=== PATIENT | female | born 1960 | race Caucasian/White ===

== ENCOUNTER 2016-11-23 00:09 | Inpatient (IN) | payer OTHER ==
[2016-11-23] VITALS (13 sets, daily range): BP systolic 103–169; BP diastolic 53–86; PULSE 76–121; RESP 16–20; TEMP 98–98.1; O2SAT 98–100
[~2016-11-23] VITALS: Ht 170.2 cm; Wt 105.0 kg
[2016-11-23] MEDS ORDERED: BYST5TAB2 PO (00:17)
[2016-11-23] MEDS ORDERED: SODIUM CHLOR 0.9% 1000 ML INJ 1,000 ML IV ONE (01:00)
[2016-11-23] MEDS ORDERED: cloNIDine HCL 0.2 MG TAB PO ONE (01:00)
[2016-11-23] MEDS ORDERED: OXYMETAZOLINE HCL 0.05% 15 ML NASAL SPRAY NASAL ONE (01:00)
[2016-11-23 01:22] LABS: AUTOMATED NEUTROPHIL # 2.8 TH/MM3 (1.8-7.7); BASOPHIL % 0.6 % (0.0-2.0); EOSINOPHIL # 0.2 TH/MM3 (0-0.4); EOSINOPHIL % 3.6 % (0.0-4.0); HEMATOCRIT 36.1 % (35.0-46.0); LYMPH % 33.9 % (9.0-44.0); LYMPHOCYTE # 1.7 TH/MM3 (1.0-4.8); MEAN CORPUSCULAR HEMOGLOBIN 28.4 PG (27.0-34.0); MONO % 6.7 % (0.0-8.0); NEUT % 55.2 % (16.0-70.0); PLATELET COUNT 195 TH/MM3 (150-450); RED CELL DISTRIBUTION WIDTH 13.4 % (11.6-17.2); WHITE BLOOD COUNT 5.1 TH/MM3 (4.0-11.0)
[2016-11-23 01:29] LABS: HEMO FLAGS AUTO DIFF
[2016-11-23] MEDS ORDERED: ONDANSETRON HCL 4 MG/2 ML VIAL IV PUSH ONE (01:30)
[2016-11-23 01:38] LABS: APTT (PATIENT) 21.2 SEC (24.3-30.1); PROTHROMBIN TIME - PATIENT 11.1 SEC (9.8-11.6)
[2016-11-23 01:46] LABS: ALKALINE PHOSPHATASE 104 U/L (45-117); TOTAL BILIRUBIN ADULT 0.6 MG/DL (0.2-1.0)
[2016-11-23 01:47] LABS: ALT (GPT) 25 U/L (10-53); ANION GAP 6 MEQ/L (5-15); AST (GOT) 26 U/L (15-37); BICARBONATE 27.2 MEQ/L (21.0-32.0); BLOOD UREA NITROGEN 14 MG/DL (7-18); CHLORIDE 108 MEQ/L (98-107); GLOMERULAR FILTRATION RATE 70 ML/MIN (>89); SODIUM (NA) 141 MEQ/L (136-145)
[2016-11-23 01:48] LABS: POTASSIUM 4.1 MEQ/L (3.5-5.1)
--- NOTE | 2016-11-23 01:53 | PD ---
HPI Chief Complaint: Nosebleed Time Seen by Provider: 01:47 Travel History International Travel<30 days: No Contact w/Intl Traveler<30days: No Traveled to known affect area: No History of Present Illness HPI 56-year-old black female presents to emergency department by EMS with complaints of epistaxis. She states that she had awoken from sleep with blood coming from her nose. She states that she was unable to stop the bleeding at home and presents to the ER. She came in by ambulance. She denies any trauma. No recent illness. She denies any blood dyscrasias. No connective tissue disorders. She does have hypertension but takes her medication daily. Patient denies any dizziness or syncope. No chest pains or palpitations. PFS Past Medical History Narrative Medical Hypertension Diabetes: Yes (NO MEDS) Patient Takes Glucophage: No Diminished Hearing: No Hypertension: Yes Tetanus Vaccination: < 5 Years ?: Not Past Surgical History Narrative Surgical Gastric bypass Abdominal Surgery: Yes (GASTRIC BYPASS 2014) Social History Alcohol Use: No Tobacco Use: No Substance Use: No Allergies-Medications (Allergen,Severity, Reaction): Coded Allergies: No Known Allergies (Unverified , 11/23/16) Reported Meds & Prescriptions Reported Meds & Active Scripts Active Reported Bystolic (Nebivolol) 5 Mg Tab 5 Mg PO DAILY Physical Exam Narrative GENERAL: Well-developed, well-nourished in no apparent distress. Nontoxic appearing. HEAD: Normocephalic, atraumatic. EYES: Pupils equal round and reactive. Extraocular motions intact. No scleral icterus. No injection or drainage. ENT: Nose copious amounts of bright red active bleeding from the left nostril with some trickling from the right. Positive blood in the posterior pharynx area. Throat without erythema, tonsillar hypertrophy or exudate. Uvula midline. Airway patent. NECK: Trachea midline. Supple, nontender, moves head freely. No central bony tenderness or spasm. CARDIOVASCULAR: Regular rate and rhythm without murmurs, gallops, or rubs. RESPIRATORY: Clear to auscultation. Breath sounds equal bilaterally. No wheezes , rales, or rhonchi. GASTROINTESTINAL: Abdomen soft, non-tender, nondistended. No hepato-splenomegaly , or palpable masses. No guarding. EXTREMITIES: No clubbing, cyanosis, or edema. No joint tenderness. BACK: Nontender without deformity. No flank tenderness. NEUROLOGICAL: Awake, alert and oriented x 3 .Cranial nerves grossly intact. Motor and sensory grossly within normal limits. Normal speech. Data Data Last Documented VS Vital Signs Date Time Temp Pulse Resp B/P Pulse Ox O2 Delivery O2 Flow Rate FiO2 11/23/16 03:01 169/82 11/23/16 02:31 96 20 100 Room Air 11/23/16 00:20 98.1 Orders Complete Blood Count With Diff (11/23/16 00:55) Comprehensive Metabolic Panel (11/23/16 00:55) Prothrombin Time / Inr (Pt) (11/23/16 00:55) Act Partial Throm Time (Ptt) (11/23/16 00:55) Iv Access Insert/Monitor (11/23/16 00:55) Ecg Monitoring (11/23/16 00:55) Type And Screen (11/23/16 00:55) Clonidine (Catapres) (11/23/16 01:00) Oxymetazoline 0.05% Panda [place] (Afrin 0.0 (11/23/16 01:00) Sodium Chlor 0.9% 1000 Ml Inj (Ns 1000 M (11/23/16 01:00) Ondansetron Inj (Zofran Inj) (11/23/16 01:30) Lorazepam Inj (Ativan Inj) (11/23/16 02:45) Hydralazine Inj (Apresoline Inj) (11/23/16 02:45) Hydralazine Inj (Apresoline Inj) (11/23/16 03:15) Hemoglobin (Hgb) (11/23/16 03:37) Hematocrit (Hct) (11/23/16 03:37) Morphine Inj (Morphine Inj) (11/23/16 03:45) Hydralazine Inj (Apresoline Inj) (11/23/16 03:45) Labs Laboratory Tests Test 11/23/16 01:10 White Blood Count 5.1 TH/MM3 Red Blood Count 4.20 MIL/MM3 Hemoglobin 11.9 GM/DL Hematocrit 36.1 % Mean Corpuscular Volume 86.0 FL Mean Corpuscular Hemoglobin 28.4 PG Mean Corpuscular Hemoglobin 33.0 % Concent Red Cell Distribution Width 13.4 % Platelet Count 195 TH/MM3 Mean Platelet Volume 9.6 FL Neutrophils (%) (Auto) 55.2 % Lymphocytes (%) (Auto) 33.9 % Monocytes (%) (Auto) 6.7 % Eosinophils (%) (Auto) 3.6 % Basophils (%) (Auto) 0.6 % Neutrophils # (Auto) 2.8 TH/MM3 Lymphocytes # (Auto) 1.7 TH/MM3 Monocytes # (Auto) 0.3 TH/MM3 Eosinophils # (Auto) 0.2 TH/MM3 Basophils # (Auto) 0.0 TH/MM3 CBC Comment AUTO DIFF Differential Comment AUTO DIFF CONFIRMED Platelet Estimate NORMAL Platelet Morphology Comment NORMAL Prothrombin Time 11.1 SEC Prothromb Time International 1.0 RATIO Ratio Activated Partial 21.2 SEC Thromboplast Time Sodium Level 141 MEQ/L Potassium Level 4.1 MEQ/L Chloride Level 108 MEQ/L Carbon Dioxide Level 27.2 MEQ/L Anion Gap 6 MEQ/L Blood Urea Nitrogen 14 MG/DL Creatinine 0.84 MG/DL Estimat Glomerular Filtration 70 ML/MIN Rate Random Glucose 157 MG/DL Calcium Level 8.5 MG/DL Total Bilirubin 0.6 MG/DL Aspartate Amino Transf 26 U/L (AST/SGOT) Alanine Aminotransferase 25 U/L (ALT/SGPT) Alkaline Phosphatase 104 U/L Total Protein 7.1 GM/DL Albumin 3.3 GM/DL Blood Type O POSITIVE Antibody Screen NEGATIVE Blood Bank Comment [facility] Medical Decision Making Medical Screen Exam Complete: Yes Emergency Medical Condition: Yes Medical Record Reviewed: Yes Interpretation(s) Laboratory Tests Test 11/23/16 01:10 White Blood Count 5.1 TH/MM3 Red Blood Count 4.20 MIL/MM3 Hemoglobin 11.9 GM/DL Hematocrit 36.1 % Mean Corpuscular Volume 86.0 FL Mean Corpuscular Hemoglobin 28.4 PG Mean Corpuscular Hemoglobin 33.0 % Concent Red Cell Distribution Width 13.4 % Platelet Count 195 TH/MM3 Mean Platelet Volume 9.6 FL Neutrophils (%) (Auto) 55.2 % Lymphocytes (%) (Auto) 33.9 % Monocytes (%) (Auto) 6.7 % Eosinophils (%) (Auto) 3.6 % Basophils (%) (Auto) 0.6 % Neutrophils # (Auto) 2.8 TH/MM3 Lymphocytes # (Auto) 1.7 TH/MM3 Monocytes # (Auto) 0.3 TH/MM3 Eosinophils # (Auto) 0.2 TH/MM3 Basophils # (Auto) 0.0 TH/MM3 CBC Comment AUTO DIFF Differential Comment AUTO DIFF CONFIRMED Platelet Estimate NORMAL Platelet Morphology Comment NORMAL Prothrombin Time 11.1 SEC Prothromb Time International 1.0 RATIO Ratio Activated Partial 21.2 SEC Thromboplast Time Sodium Level 141 MEQ/L Potassium Level 4.1 MEQ/L Chloride Level 108 MEQ/L Carbon Dioxide Level 27.2 MEQ/L Anion Gap 6 MEQ/L Blood Urea Nitrogen 14 MG/DL Creatinine 0.84 MG/DL Estimat Glomerular Filtration 70 ML/MIN Rate Random Glucose 157 MG/DL Calcium Level 8.5 MG/DL Total Bilirubin 0.6 MG/DL Aspartate Amino Transf 26 U/L (AST/SGOT) Alanine Aminotransferase 25 U/L (ALT/SGPT) Alkaline Phosphatase 104 U/L Total Protein 7.1 GM/DL Albumin 3.3 GM/DL Blood Type O POSITIVE Antibody Screen NEGATIVE Blood Bank Comment Differential Diagnosis Differential diagnoses: Blood dyscrasia, anemia, hypertension, anterior nosebleed, posterior nosebleed Narrative Course IV access is obtained. Routine laboratory tests sent for analysis including CBC , chemistry, coags, type and screen. Patient's given clonidine 0.2 mg by mouth. 1 L bolus of normal saline. The nose has been packed with anterior posterior 7.5 cm Rhino Rocket. She has had significant improvement of her bleeding. She still has some trickling down the back of her throat. The 7.5 cm Rhino Rocket is removed and a double anterior posterior Rhino Rocket is instilled and left nostril as well as a 7.5 cm anterior posterior packing in the right nostril. She has continued to have bright red trickling down the back of her throat. At abscess discussed the case with Dr. Singh the ENT almond blancher operator. He has requested that the patient be given additional blood pressure medication for control. He'll be notified and 30 minutes of our results. He is aware that I am concerned that this is a posterior nosebleed with arterial component. The patient has been given a total of 30 mg of hydralazine IV. She is also given 4 mg of morphine IV. Her bleeding has now subsided. She has had 30 minutes of hemostasis. I've spoken with Dr. Singh who has agreed to be a instructional consultant. The patient will be admitted to the [facility] service. I've spoken with Dr. Montaño who has agreed to admit the patient. A consult will be placed for Dr. Singh. The patient's given hydralazine 10 mg IV and 1 mg of Ativan IV. Critical Care Narrative Aggregate critical care time was 35 minutes. Time to perform other separately billable procedures was not included in the critical care time. My time did not include minutes spent treating any other patients simultaneously or on activities that did not directly contribute to the patient's treatment. The services I provided to this patient were to treat and/or prevent clinically significant deterioration that could result in: Hemostasis I provided critical care services requiring my management, as noted below: Chart data review, documentation time, medication orders and management, vital sign assessments/reviewing monitor data, ordering and reviewing lab tests, ordering and interpreting/reviewing x-rays and diagnostic studies, care of the patient and discussion of the patient with the admitting physicians. Procedures Procedure Narrative NASAL PACKING: Clots are expressed and the patient is given 2 sprays of Afrin nasal spray in both nostrils. The left nare was packed with a 7.5 cm anterior posterior Rhino Rocket. Partial hemostasis is obtained. She still has trickling down the back of the throat. The patient was observed with recurrence of bleeding. Patient tolerated procedure well. Nasal packing #2: The anterior 7.5 cm packing is removed. Once again the clots are removed by blowing the nose. 2 additional sprays of Afrin nasal spray is instilled in each nostril. A double balloon anterior posterior packing is placed in the left nostril. A 7.5 cm single balloon anterior posterior packing is placed in the right nostril. There is no active bleeding from the naris. There is still trickling down the back of the throat. Patient tolerated procedure well. Diagnosis Primary Impression: Acute posterior epistaxis Condition: Stable Cam Pisano Nov 23, 2016 01:53
[2016-11-23 01:56] LABS: PLATELET ESTIMATE SMEAR NORMAL (NORMAL); PLATELET MORPHOLOGY NORMAL (NORMAL); SCAN/DIFF AUTO DIFF CONFIRMED
[2016-11-23] MEDS ORDERED: hydrALAZINE HCL 20 MG/ML VIAL IV PUSH ONE ×3 (02:45→03:45)
[2016-11-23] MEDS ORDERED: LORazepam 2 MG/ML VIAL IV PUSH ONE (02:45)
[2016-11-23] MEDS ORDERED: MORPHINE SULFATE 4 MG/ML INJ IV PUSH ONE (03:45)
[2016-11-23] MEDS ORDERED: MISCELLANEOUS NURSING INFORMATION XX SCH (04:30)
[2016-11-23] MEDS ORDERED: ONDANSETRON HCL 4 MG/2 ML VIAL IVP PRN (04:30)
[2016-11-23] MEDS ORDERED: BISACODYL 10 MG SUPP PR PRN (04:30)
[2016-11-23] MEDS ORDERED: MORPHINE SULFATE 4 MG/ML INJ IV PRN (04:30)
[2016-11-23] MEDS ORDERED: CHLORHEXIDINE GLUCONATE 2 % 1 PACK (2 CLOTHS) TOP PRN (04:30)
[2016-11-23] MEDS ORDERED: ACETAMINOPHEN/HYDROcodone 325 MG/5 MG TAB PO PRN (04:30)
[2016-11-23] MEDS ORDERED: SODIUM CHLORIDE 0.9% FLUSH 5 ML FLUSH FLUSH PRN (04:30)
[2016-11-23] MEDS ORDERED: LABETALOL HCL 100 MG/20 ML VIAL IV PUSH PRN (04:45)
[2016-11-23 04:46] LABS: HEMATOCRIT 33.9 % (35.0-46.0)
--- NOTE | 2016-11-23 05:02 | HHI.HP ---
[facility] Primary Care Physician Non-Staff Admission Diagnosis posterior epistaxis Diagnoses: (1) Acute posterior epistaxis Diagnosis: Principal (2) HTN (hypertension) Diagnosis: Principal (3) Dehydration Diagnosis: Principal Travel History International Travel<30 Days: No Contact w/Intl Traveler <30 Da: No Traveled to Known Affected Are: No History of Present Illness This is a 56-year-old female with a PMH of HTN who was brought to the ER by EMS secondary to acute onset of epistaxis. Per patient she woke up from sleep and felt her nose running w/ significant post nasal drip. When she wiped herself with a towel noted large amount of blood coming from her nose. No h/o similar symptoms. No recent nose blowing/picking. Not on ASA or anticoagulation. Not on over the counter medications/vitamins. On arrival, BP 144/85, HR 103, O2 sat 100% on RA, Afebrile. CBC unremarkable, Hgb 11.9. Repeat Hgb 11.2. Chemistry essentially unremarkable except for GFR 70. INR 1.0. Multiple attempts to control bleeding in ER, s/p Afrin and Rhino Rockets w/ persistent post nasal drip. Dr. Singh w/ ENT consulted, recommended BP control. S/p Hydralazine 30mg IV in ER w/ repeat BP 149/70, HR 112. Dr. Singh to see in am. Review of Systems Other ROS: 14 point review of systems otherwise negative. Past Family Social History Past Medical History PMH: HTN Past Surgical History PAST SURGICAL HISTORY: Gastric Bypass Allergies: Coded Allergies: No Known Allergies (Unverified , 11/23/16) Family History PAST FAMILY HISTORY: Reviewed. No h/o DM or CAD Social History PAST SOCIAL HISTORY: Negative for alcohol, tobacco or drugs. Physical Exam Vital Signs Vital Signs Date Time Temp Pulse Resp B/P Pulse Ox O2 Delivery O2 Flow Rate FiO2 11/23/16 04:14 121 18 149/79 99 Room Air 11/23/16 03:01 169/82 11/23/16 02:31 96 20 162/79 100 Room Air 11/23/16 00:20 98.1 103 18 144/85 99 Physical Exam PE: GENERAL: Extremely pleasant middle-aged black female in no acute distress. HEENT: PERRLA, EOMI. No scleral icterus or conjunctival pallor. No lid lag or facial droop. Rhino Rockets in place bilaterally, some trickling of blood noted. CARDIOVASCULAR: Regular rate and rhythm. No obvious murmurs to auscultation. No chest tenderness to palpation. RESPIRATORY: No obvious rhonchi or wheezing. Clear to auscultation. Breath sounds equal bilaterally. GASTROINTESTINAL: Abdomen soft, non-tender, nondistended. BS normal. MUSCULOSKELETAL: Extremities without clubbing, cyanosis, or edema. No obvious deformities. NEUROLOGICAL: Awake, alert and oriented x4. No focal neurologic deficits. Moving both upper and lower extremities spontaneously. Laboratory Laboratory Tests Test 11/23/16 01:10 White Blood Count 5.1 Red Blood Count 4.20 Hemoglobin 11.9 Hematocrit 36.1 Mean Corpuscular Volume 86.0 Mean Corpuscular Hemoglobin 28.4 Mean Corpuscular Hemoglobin 33.0 Concent Red Cell Distribution Width 13.4 Platelet Count 195 Mean Platelet Volume 9.6 Neutrophils (%) (Auto) 55.2 Lymphocytes (%) (Auto) 33.9 Monocytes (%) (Auto) 6.7 Eosinophils (%) (Auto) 3.6 Basophils (%) (Auto) 0.6 Neutrophils # (Auto) 2.8 Lymphocytes # (Auto) 1.7 Monocytes # (Auto) 0.3 Eosinophils # (Auto) 0.2 Basophils # (Auto) 0.0 CBC Comment AUTO DIFF Differential Comment AUTO DIFF CONFIRMED Platelet Estimate NORMAL Platelet Morphology Comment NORMAL Prothrombin Time 11.1 Prothromb Time International 1.0 Ratio Activated Partial 21.2 Thromboplast Time Sodium Level 141 Potassium Level 4.1 Chloride Level 108 Carbon Dioxide Level 27.2 Anion Gap 6 Blood Urea Nitrogen 14 Creatinine 0.84 Estimat Glomerular Filtration 70 Rate Random Glucose 157 Calcium Level 8.5 Total Bilirubin 0.6 Aspartate Amino Transf 26 (AST/SGOT) Alanine Aminotransferase 25 (ALT/SGPT) Alkaline Phosphatase 104 Total Protein 7.1 Albumin 3.3 Blood Type O POSITIVE Antibody Screen NEGATIVE Blood Bank Comment Result Diagram: 11/23/1610911/23/16109 Assessment and Plan Problem List: (1) Acute posterior epistaxis ICD Code: R04.0 Status: Acute (2) HTN (hypertension) ICD Code: I10 Status: Acute (3) Dehydration ICD Code: E86.0 Status: Acute Assessment and Plan A/P: 1. Epistaxis: Acute Posterior Epistaxis, woke from sleep, no inciting event. Multiple attempts to control bleeding in ER, s/p Afrin and Rhino Rockets bilaterally w/ persistent post nasal drip at first, now improved. Dr. Singh consulted by ER physician, recommended BP control and will evaluate in am. Hgb 11.9 on arrival, repeat Hgb 11.2. Will admit to ICU for close monitoring in light of concern for posterior epistaxis w/ arterial bleed and need to optimize BP. Concrete Tile Machine Operator consult placed, Dr. Richardson aware. 2. HTN: BP 160's systolic, s/p Hydralazine 30mg IV total in ER, repeat BP 149/ 79, HR 121. Tachycardia likely due to combination of bleed and Hydralazine. Will monitor. Labetalol prn for Systolic >160. 3. Dehydration: GFR 70, no previous labs for comparison. BUN/Creatinine normal. IVF, repeat labs in am. 4. DVT Prophylaxis: Pharmacologic contraindication in light of acute epistaxis. 5. Social work for d/c planning as needed. 6. Case discussed w/ ER physician at length. Physician Certification 2 Midnight Certification Type: Admission for Inpatient Services Order for Inpatient Services The services are ordered in accordance with Medicare regulations or non- Medicare payer requirements, as applicable. In the case of services not specified as inpatient-only, they are appropriately provided as inpatient services in accordance with the 2-midnight benchmark. Estimated LOS (days): 2 days is the estimated time the patient will need to remain in the hospital, assuming treatment plan goals are met and no additional complications. Post-Hospital Plan: Not yet determined Jessica Montaño MD Nov 23, 2016 05:02
[2016-11-23] MEDS: SODIUM CHLOR 0.9% 1000 ML INJ 1,000 ML IV SCH ×2 (08:03→16:03)
[2016-11-23] MEDS: SODIUM CHLORIDE 0.9% FLUSH 5 ML FLUSH FLUSH SCH ×2 (09:00→21:40)
[2016-11-23 10:28] LABS: HEMATOCRIT 34.5 % (35.0-46.0); REVIEW FLAG FINAL
--- NOTE | 2016-11-23 10:29 | HHI.PR ---
Subjective Remarks Follow up for posterior epistaxis. The patient reports feeling better today. She is still having some bloody leakage around the nares despite the packing, also having small amount of posterior drip. Denies any headache, lightheadedness , dizziness, chest pain, or shortness of breath. She is awaiting to see ENT specialist. The patient is from [place], only visiting here for vacation. Discussed the importance of her following up with an ENT specialist after discharge. The patient also reports she only takes her Bystolic 5mg daily as needed. She states she is instructed to take this only if her SBP is > 110. She usually only has to take the Bystolic twice a week. She did not check her blood pressure last night before coming to the ER. Objective Vitals Vital Signs Date Time Temp Pulse Resp B/P Pulse Ox O2 Delivery O2 Flow Rate FiO2 11/23/16 08:09 106/53 11/23/16 06:09 103 16 109/61 100 Room Air 11/23/16 05:18 109 16 119/59 100 Room Air 11/23/16 04:19 16 11/23/16 04:14 121 18 149/79 99 Room Air 11/23/16 03:01 169/82 11/23/16 02:31 96 20 162/79 100 Room Air 11/23/16 00:20 98.1 103 18 144/85 99 Result Diagram: 11/23/16 0425 11/23/16 0110 Objective Remarks GENERAL: Well-nourished, well-developed middle aged female patient in [facility]. SKIN: Warm and dry. No rash. HEAD: Normocephalic. Atraumatic. EYES: Pupils equal and round. No scleral icterus. No injection or drainage. ENT: Bilateral nasal packing in place, small amount of blood leakage around nares, and small amount of bloody drainage on posterior oropharynx. NECK: Supple. Trachea midline. CARDIOVASCULAR: Regular rate and rhythm. S1, S2 noted. No murmur appreciated. RESPIRATORY: No accessory muscle use. Clear to auscultation. Breath sounds equal bilaterally. GASTROINTESTINAL: Abdomen soft, non-tender, nondistended. Normoactive bowel sounds x4. MUSCULOSKELETAL: No obvious deformities. Extremities without clubbing, cyanosis , or edema. NEUROLOGICAL: Awake and alert. No obvious cranial nerve deficits. Motor grossly within normal limits. Normal speech. PSYCHIATRIC: Appropriate mood and affect; insight and judgment normal. Medications and IVs Current Medications Medications (Trade) Dose Ordered Sig/Shaheen Route Start Time Stop Time Status Last Admin Miscellaneous Information 1 [id number] XX 11/23/16 04:30 (Chlorhexidine 2% Cloth) 3 pack Taper DAILY@04 TOP 11/24/16 04:00 11/20/17 03:59 Chlorhexidine Gluconate 3 pack 3 pack UNSCH PRN TOP 11/23/16 04:30 (NS 1000 ml Inj) 1,000 ml @ 100 mls/hr Q10H IV 11/23/16 04:23 11/23/16 08:03 (NS Flush) 2 ml UNSCH PRN FLUSH 11/23/16 04:30 (NS Flush) 2 ml BID FLUSH 11/23/16 09:00 (Zofran Inj) 4 mg Q6H PRN IVP 11/23/16 04:30 (Dulcolax Supp) 10 mg DAILY PRN HI 11/23/16 04:30 (Tylenol) 650 mg Q6H PRN PO 11/23/16 04:30 (Delia 5-325 Mg) 1 tab Q4H PRN PO 11/23/16 04:30 (Morphine Inj) 2 mg Q3H PRN IV 11/23/16 04:30 (Trandate Inj) 10 mg Q20M PRN IV PUSH 11/23/16 04:45 Urinary Catheter: No Vascular Central Line Catheter: No A/P Problem List: (1) Acute posterior epistaxis ICD Code: R04.0 Status: Acute (2) HTN (hypertension) ICD Code: I10 Status: Acute (3) Dehydration ICD Code: E86.0 Status: Resolved Assessment and Plan 56-year-old female with a PMH of HTN who was brought to the ER by EMS secondary to acute onset of epistaxis last night. Acute Posterior Epistaxis: awoken from sleep, no inciting event. Multiple attempts to control bleeding in ER, s/p Afrin and Rhino Rockets bilaterally w/ persistent post nasal drip at first, now improved. Dr. Singh consulted by ER physician, recommended BP control and will evaluate in am. Hgb 11.9 on arrival , repeat Hgb 11.2, monitor serial H&H. 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 HTN: BP 160's systolic, s/p Hydralazine 30mg IV total in ER, repeat BP 149/79, HR 121. Tachycardia likely due to combination of bleed and Hydralazine. Will monitor. Labetalol prn for Systolic >160. Started on HCTZ 12.5mg daily. Dehydration: GFR 70, no previous labs for comparison. BUN/Creatinine normal. IVF, repeat labs in am. DVT Prophylaxis: teds/SCDs. Pharmacologic contraindication in light of acute epistaxis. Problem Qualifiers (1) HTN (hypertension): Qualified Code: I10 - Essential hypertension Holly Muhammad PA-C Nov 23, 2016 10:29 Kwaku Schaefer MD Nov 25, 2016 17:38
[2016-11-23] MEDS: HYDROCHLOROTHIAZIDE 12.5 MG CAP PO SCH (16:02)
[2016-11-23 19:05] LABS: HEMATOCRIT 32.1 % (35.0-46.0); REVIEW FLAG FINAL
--- NOTE | 2016-11-23 21:27 | MB ---
cc: ASTON SINGH MD DATE OF CONSULTATION 11/23/16 CHIEF COMPLAINT Nose bleeds. HISTORY OF PRESENT ILLNESS The patient is a pleasant 56-year-old female who is here from out of town from [place] who was admitted with a posterior nosebleed. Early this morning, she was having nosebleeds that were challenging for the ER doctor to control. He had to put in bilateral nasal packs and eventually the packs that were able to control the nosebleeds were a left-sided anterior-posterior rhino rocket which was a double below anterior and posterior packing. The patient also has a right-sided single balloon anterior posterior packing placed as well. The bleeding has subsided since this morning. However, her blood pressure although well controlled this morning is in the 160s in the evening currently. She does take blood pressure medication daily. Of note, looking at her labs her H&H are mildly decreased at 11.2 and 33.9. Doing a nasal endoscopy around the balloons anteriorly showed no active bleeding and then entering through the mouth and retroflexing the flexible scope up in the posterior nasopharynx showed no fresh blood there as well. There was also no fresh blood in the posterior oropharynx. The patient is currently stable. However, she should be watched closely. ASSESSMENT Epistaxis. PLAN Continue the blood pressure control and be stringent with attempting to keep the blood pressure ideally in the range where it words was earlier today in the one teens. The patient's pulse ox is between 99 and 1000% on room air. The patient to continue her monitoring over the weekend for reevaluation. As she has bilateral balloons in place, we recommend at least a two night stay, possibly three depending on her status. If patient has any repeat nosebleeds while she is in house I strongly recommend adequate blood pressure control to maintain systolic blood pressure in the one teens and also the patient may have ice gauze placed over nose as needed if she has any active bleeding. The patient may also gargle icechips gently if she has an active bleed to help cool down her posterior nasopharynx if needed. I will standing by for now but ENT is available for any further active bleed that is unable to be controlled by conservative measures. Thank you for this consultation. Aston Singh MD CCP/ /8:18 PM /9:09 PM
[2016-11-23] MEDS: cloNIDine HCL 0.1 MG TAB PO PRN (21:39)
[2016-11-24] VITALS (7 sets, daily range): BP systolic 111–150; BP diastolic 55–79; PULSE 76–88; RESP 18; TEMP 97.6–98.8; O2SAT 97–100
[2016-11-24] MEDS: SODIUM CHLOR 0.9% 1000 ML INJ 1,000 ML IV SCH ×3 (00:23→20:23)
[2016-11-24] MEDS: CHLORHEXIDINE GLUCONATE 2 % 1 PACK (2 CLOTHS) TOP SCH (04:00)
[2016-11-24 07:13] LABS: AUTOMATED NEUTROPHIL # 3.3 TH/MM3 (1.8-7.7); BASOPHIL # 0.1 TH/MM3 (0-0.2); BASOPHIL % 0.9 % (0.0-2.0); EOSINOPHIL # 0.1 TH/MM3 (0-0.4); EOSINOPHIL % 1.2 % (0.0-4.0); HEMATOCRIT 30.3 % (35.0-46.0); HEMO FLAGS DIFF FINAL; LYMPH % 39.1 % (9.0-44.0); LYMPHOCYTE # 2.5 TH/MM3 (1.0-4.8); MEAN CELL VOLUME 86.6 FL (80.0-100.0); MEAN CORPUSCULAR HEMOGLOBIN 28.6 PG (27.0-34.0); MONO % 8.2 % (0.0-8.0); NEUT % 50.6 % (16.0-70.0); PLATELET COUNT 183 TH/MM3 (150-450); RED CELL DISTRIBUTION WIDTH 13.5 % (11.6-17.2); WHITE BLOOD COUNT 6.4 TH/MM3 (4.0-11.0)
[2016-11-24 07:33] LABS: ALKALINE PHOSPHATASE 78 U/L (45-117); ALT (GPT) 17 U/L (10-53); ANION GAP 8 MEQ/L (5-15); AST (GOT) 13 U/L (15-37); BICARBONATE 25.3 MEQ/L (21.0-32.0); BLOOD UREA NITROGEN 9 MG/DL (7-18); CHLORIDE 107 MEQ/L (98-107); GLOMERULAR FILTRATION RATE 94 ML/MIN (>89); POTASSIUM 3.4 MEQ/L (3.5-5.1); SODIUM (NA) 140 MEQ/L (136-145); TOTAL BILIRUBIN ADULT 1.7 MG/DL (0.2-1.0)
[2016-11-24] MEDS ORDERED: POTASSIUM CHLORIDE 20 MEQ CONTROLLED RELEASE TAB PO ONE (07:45)
[2016-11-24] MEDS: HYDROCHLOROTHIAZIDE 12.5 MG CAP PO SCH (08:13)
[2016-11-24] MEDS: SODIUM CHLORIDE 0.9% FLUSH 5 ML FLUSH FLUSH SCH ×2 (08:13→21:00)
[2016-11-24] MEDS: NEBIVOLOL 2.5 MG TAB PO SCH (09:00)
[2016-11-24] MEDS: cloNIDine HCL 0.1 MG TAB PO PRN (12:30)
[2016-11-24] MEDS: DOCUSATE SODIUM 100 MG CAP PO SCH (13:00)
[2016-11-24] MEDS: ACETAMINOPHEN 325 MG TAB PO PRN ×3 (13:49→18:33)
[2016-11-24] MEDS ORDERED: NEBIVOLOL 5 MG TAB PO SCH (15:15)
--- NOTE | 2016-11-24 15:28 | HHI.PR ---
Subjective Remarks Follow-up for epistaxis. Patient seen with family at bedside. She still is having some pink sinus drainage from her nostrils. Tolerating clear liquids. She denies any headache, lightheadedness, dizziness. Has been on Bystolic as needed only at home. Ambulating without difficulties. Normal BM. Objective Vitals Vital Signs Date Time Temp Pulse Resp B/P Pulse Ox O2 Delivery O2 Flow Rate FiO2 11/24/16 12:00 98.8 88 18 150/74 100 11/24/16 09:00 100 Room Air 11/24/16 08:00 98.8 83 18 145/79 98 11/24/16 04:00 98.1 78 18 111/56 97 11/24/16 00:00 98.5 83 18 111/55 97 11/23/16 20:00 84 11/23/16 20:00 98.1 80 18 163/86 98 163/81 11/23/16 19:30 Room Air 11/23/16 18:00 Room Air 11/23/16 16:13 98.0 81 18 144/70 98 Room Air I/O 11/23/16 11/23/16 11/23/16 11/24/16 11/24/16 11/24/16 07:00 15:00 23:00 07:00 15:00 23:00 Intake Total 827 ml 872 ml Balance 827 ml 872 ml Intake Oral 240 ml 0 ml IV Total 587 ml 872 ml # Voids 1 2 Result Diagram: 11/24/1617 11/24/16 0617 Objective Remarks GENERAL: Well-developed well-nourished. In no acute distress. SKIN: Warm and dry. No lesions noted. HEENT: Nares with small amount of pink drainage around nasal packing. Posterior oropharynx with a small amount of active bright red bleeding going down the throat. CARDIOVASCULAR: Regular rate and rhythm. No murmur appreciated. RESPIRATORY: No accessory muscle use. Clear to auscultation. Breath sounds equal bilaterally. GASTROINTESTINAL: Abdomen soft, non-tender, nondistended. Bowel sounds x4. MUSCULOSKELETAL: No obvious deformities. No clubbing or cyanosis. No edema. NEUROLOGICAL: Awake and alert. No focal neurological deficits. Moves upper and lower extremities spontaneously. Normal speech. PSYCHIATRIC: Appropriate mood and affect; insight and judgment normal. A/P Problem List: (1) Acute posterior epistaxis ICD Code: R04.0 Status: Acute (2) HTN (hypertension) ICD Code: I10 Status: Acute (3) Dehydration ICD Code: E86.0 Status: Resolved Assessment and Plan 56-year-old female with a PMH of HTN who was brought to the ER by EMS secondary to acute onset of epistaxis last night. Acute Posterior Epistaxis: awoken from sleep, no inciting event. Multiple attempts to control bleeding in ER, s/p Afrin and Rhino Rockets bilaterally w/ persistent post nasal drip at first, now improved. ENT consulted, seen by Dr. Singh. Recommended nasal packing for 2-3 days, strict BP control. Hgb 11.9 on arrival, decreased to 10.0 today. Monitor H&H. Transfuse if indicated. Colace to prevent straining with stools. Cool liquids/ice orally as needed. Advance to soft diet as tolerated. HTN: BP remains not optimally controlled today. Started on HCTZ. Start Bystolic with hold parameters. Will monitor. Labetalol prn for Systolic >160. Dehydration: Creatinine improved with IVF. Mild hypokalemia: Potassium 3.4. Replace orally. Follow-up potassium and magnesium level tomorrow. DVT Prophylaxis: teds/SCDs. Pharmacologic contraindication in light of acute epistaxis. Discussed with Dr. Velasquez Discharge Planning Disposition pending clinical course. Follow-up ENT recommendations. Problem Qualifiers (1) HTN (hypertension): Qualified Code: I10 - Essential hypertension Manuel Herrera Nov 24, 2016 15:28 Kwaku Schaefer MD Nov 25, 2016 17:39
[2016-11-25] VITALS (7 sets, daily range): BP systolic 103–145; BP diastolic 51–76; PULSE 75–96; RESP 16–20; TEMP 97.5–99.1; O2SAT 96–99
[2016-11-25] MEDS: CHLORHEXIDINE GLUCONATE 2 % 1 PACK (2 CLOTHS) TOP SCH (04:00)
[2016-11-25 09:35] LABS: AUTOMATED NEUTROPHIL # 3.2 TH/MM3 (1.8-7.7); BASOPHIL # 0.1 TH/MM3 (0-0.2); BASOPHIL % 1.2 % (0.0-2.0); EOSINOPHIL # 0.2 TH/MM3 (0-0.4); EOSINOPHIL % 2.9 % (0.0-4.0); HEMATOCRIT 31.1 % (35.0-46.0); HEMO FLAGS DIFF FINAL; LYMPHOCYTE # 1.7 TH/MM3 (1.0-4.8); MEAN CELL VOLUME 87.6 FL (80.0-100.0); MEAN CORPUSCULAR HEMOGLOBIN 28.5 PG (27.0-34.0); MEAN CORPUSCULAR HGB CONC 32.5 % (32.0-36.0); MONO % 8.3 % (0.0-8.0); NEUT % 57.6 % (16.0-70.0); PLATELET COUNT 196 TH/MM3 (150-450); RED BLOOD COUNT 3.55 MIL/MM3 (4.00-5.30); RED CELL DISTRIBUTION WIDTH 13.2 % (11.6-17.2); WHITE BLOOD COUNT 5.6 TH/MM3 (4.0-11.0)
[2016-11-25] MEDS: HYDROCHLOROTHIAZIDE 12.5 MG CAP PO SCH (09:55)
[2016-11-25] MEDS: DOCUSATE SODIUM 100 MG CAP PO SCH (09:56)
[2016-11-25] MEDS: NEBIVOLOL 2.5 MG TAB PO SCH (09:56)
[2016-11-25] MEDS: SODIUM CHLORIDE 0.9% FLUSH 5 ML FLUSH FLUSH SCH ×2 (09:58→21:00)
[2016-11-25 10:04] LABS: BICARBONATE 29.4 MEQ/L (21.0-32.0); POTASSIUM 3.9 MEQ/L (3.5-5.1)
[2016-11-25] MEDS: SODIUM CHLOR 0.9% 1000 ML INJ 1,000 ML IV SCH (16:40)
--- NOTE | 2016-11-25 17:50 | HHI.PR ---
Subjective Remarks Deferred entry, patient seen earlier other around 1 PM. No further epistaxis. Patient denies chest pain or shortness of breath Patient denies fevers or chills Family appetite. Objective Vitals Vital Signs Date Time Temp Pulse Resp B/P Pulse Ox O2 Delivery O2 Flow Rate FiO2 11/25/16 16:00 98.8 84 18 113/63 98 11/25/16 12:00 99.1 90 18 128/60 97 11/25/16 10:04 96 11/25/16 10:04 Room Air 11/25/16 08:00 98.3 88 18 145/76 99 11/25/16 04:00 98.4 81 16 114/76 99 11/25/16 00:00 97.5 75 16 122/62 99 11/24/16 20:11 76 11/24/16 20:11 Room Air 11/24/16 20:00 97.6 88 18 114/60 98 I/O 11/24/16 11/24/16 11/24/16 11/25/16 11/25/16 11/25/16 07:00 15:00 23:00 07:00 15:00 23:00 Intake Total 872 ml 480 ml 220 ml 1440 ml 2109 ml Balance 872 ml 480 ml 220 ml 1440 ml 2109 ml Intake Oral 0 ml 480 ml 840 ml 480 ml IV Total 872 ml 220 ml 600 ml 1629 ml # Voids 2 2 2 3 # Bowel Movements 0 0 Result Diagram: 11/25/16 0823 11/25/16 0823 Objective Remarks GENERAL: Well-nourished, well-developed middle aged female patient in [facility]. SKIN: Warm and dry. No rash. HEAD: Normocephalic. Atraumatic. EYES: Pupils equal and round. No scleral icterus. No injection or drainage. ENT: Bilateral nasal packing in place, small amount of blood leakage around nares, no blood y drainage observed in posterior pharynx. NECK: Supple. Trachea midline. CARDIOVASCULAR: Regular rate and rhythm. S1, S2 noted. No murmur appreciated. RESPIRATORY: No accessory muscle use. Clear to auscultation. Breath sounds equal bilaterally. GASTROINTESTINAL: Abdomen soft, non-tender, nondistended. Normoactive bowel sounds x4. MUSCULOSKELETAL: No obvious deformities. Extremities without clubbing, cyanosis , or edema. NEUROLOGICAL: Awake and alert. No obvious cranial nerve deficits. Motor grossly within normal limits. Normal speech. PSYCHIATRIC: Appropriate mood and affect; insight and judgment normal. Medications and IVs Current Medications Medications (Trade) Dose Ordered Sig/Shaheen Route Start Time Stop Time Status Last Admin Miscellaneous Information 1 [id number] XX 11/23/16 04:30 (Chlorhexidine 2% Cloth) 3 pack Taper DAILY@04 TOP 11/24/16 04:00 11/20/17 03:59 Chlorhexidine Gluconate 3 pack 3 pack UNSCH PRN TOP 11/23/16 04:30 (NS 1000 ml Inj) 1,000 ml @ 100 mls/hr Q10H IV 11/23/16 04:23 11/25/16 16:40 (NS Flush) 2 ml UNSCH PRN FLUSH 11/23/16 04:30 (NS Flush) 2 ml BID FLUSH 11/23/16 09:00 11/24/16 21:00 (Zofran Inj) 4 mg Q6H PRN IVP 11/23/16 04:30 (Dulcolax Supp) 10 mg DAILY PRN OK 11/23/16 04:30 (Tylenol) 650 mg Q6H PRN PO 11/23/16 04:30 11/24/16 18:33 (Bennett 5-325 Mg) 1 tab Q4H PRN PO 11/23/16 04:30 (Morphine Inj) 2 mg Q3H PRN IV 11/23/16 04:30 (Trandate Inj) 10 mg Q20M PRN IV PUSH 11/23/16 04:45 (Microzide) 12.5 mg DAILY PO 11/23/16 14:00 11/25/16 09:55 (Catapres) 0.1 mg Q6H PRN PO 11/23/16 21:00 11/24/16 12:30 (Colace) 100 mg DAILY PO 11/24/16 13:00 11/25/16 09:56 (Bystolic) 2.5 mg DAILY PO 11/24/16 09:00 11/25/16 09:56 Urinary Catheter: No Vascular Central Line Catheter: No A/P Problem List: (1) Acute posterior epistaxis ICD Code: R04.0 Status: Acute (2) HTN (hypertension) ICD Code: I10 Status: Acute (3) Dehydration ICD Code: E86.0 Status: Resolved Assessment and Plan 56-year-old female with a PMH of HTN who was brought to the ER by EMS secondary to acute onset of epistaxis last night. Acute Posterior Epistaxis: awoken from sleep, no inciting event. Multiple attempts to control bleeding in ER, s/p Afrin and Rhino Rockets bilaterally w/ persistent post nasal drip at first, now improved. Dr. Singh consulted by ER physician, recommended BP control and will evaluate in am. Hgb 11.9 on arrival , repeat Hgb 11.2, monitor serial H&H. Admitted to ICU for close monitoring in light of concern for posterior epistaxis w/ arterial bleed and need to optimize BP, Electro Tech consult placed, however patient stable today, will d/c pc technician, place in monitored bed. 11/25 Patient still has Rhino rockets in place. No further epistaxis. appreciate ENT consultation and recommendations. Plan is to remove Rhino rockets once bp more stable. HTN: BP 160's systolic, s/p Hydralazine 30mg IV total in ER, repeat BP 149/79, HR 121. Tachycardia likely due to combination of bleed and Hydralazine. now resolved. Labetalol prn for Systolic >160. Patient started on Nevibolol 2.5 mg po daily and HCTZ 12.5 mg po daily. BP seems to be stable. ----> continue. Dehydration: Treated with Iv fluids - now resolved. DVT Prophylaxis: teds/SCDs. Pharmacologic contraindication in light of acute epistaxis. Discharge Planning Poss Dc in am once patient cleared by ENT. Problem Qualifiers (1) HTN (hypertension): Qualified Code: I10 - Essential hypertension Kwaku Schaefer MD Nov 25, 2016 17:50
[2016-11-25] MEDS: OXYMETAZOLINE HCL 0.05% 15 ML NASAL SPRAY NASAL SCH (21:44)
[2016-11-26] VITALS: BP 117/59; PULSE 75; RESP 20; TEMP 98.2; O2SAT 97
[2016-11-26 02:02] VITALS: PULSE 120
[2016-11-26 02:25] VITALS: BP 118/58; PULSE 93
[2016-11-26 04:00] VITALS: BP 111/58; PULSE 71; RESP 20; TEMP 98.1; O2SAT 95
[2016-11-26] MEDS: OXYMETAZOLINE HCL 0.05% 15 ML NASAL SPRAY NASAL SCH (04:42)
[2016-11-26] MEDS: CHLORHEXIDINE GLUCONATE 2 % 1 PACK (2 CLOTHS) TOP SCH (04:42)
[2016-11-26] MEDS: SODIUM CHLOR 0.9% 1000 ML INJ 1,000 ML IV SCH (04:43)
[2016-11-26 07:03] LABS: HEMATOCRIT 29.8 % (35.0-46.0); MEAN CELL VOLUME 86.6 FL (80.0-100.0); MEAN CORPUSCULAR HGB CONC 33.5 % (32.0-36.0); PLATELET COUNT 196 TH/MM3 (150-450); RED BLOOD COUNT 3.44 MIL/MM3 (4.00-5.30); RED CELL DISTRIBUTION WIDTH 13.2 % (11.6-17.2); REVIEW FLAG FINAL
[2016-11-26 07:28] LABS: BICARBONATE 28.7 MEQ/L (21.0-32.0); POTASSIUM 3.5 MEQ/L (3.5-5.1)
[2016-11-26] MEDS ORDERED: BYST2.5T2 PO (07:44)
[2016-11-26] MEDS ORDERED: HYDR12.57 PO (07:44)
--- NOTE | 2016-11-26 07:44 | HHI.DS ---
Discharge Summary Admission Date Nov 23, 2016 at 04:04 Discharge Date: Nov 26, 2016 Admitting Diagnosis posterior epistaxis (1) Acute posterior epistaxis ICD Code: R04.0 Diagnosis: Principal (2) HTN (hypertension) ICD Code: I10 Diagnosis: Secondary (3) Dehydration ICD Code: E86.0 Diagnosis: Secondary Procedures none Brief History - From Admission This is a 56-year-old female with a PMH of HTN who was brought to the ER by EMS secondary to acute onset of epistaxis. Per patient she woke up from sleep and felt her nose running w/ significant post nasal drip. When she wiped herself with a towel noted large amount of blood coming from her nose. No h/o similar symptoms. No recent nose blowing/picking. Not on ASA or anticoagulation. Not on over the counter medications/vitamins. On arrival, BP 144/85, HR 103, O2 sat 100% on RA, Afebrile. CBC unremarkable, Hgb 11.9. Repeat Hgb 11.2. Chemistry essentially unremarkable except for GFR 70. INR 1.0. Multiple attempts to control bleeding in ER, s/p Afrin and Rhino Rockets w/ persistent post nasal drip. Dr. Singh w/ ENT consulted, recommended BP control. S/p Hydralazine 30mg IV in ER w/ repeat BP 149/70, HR 112. Dr. Singh to see in am. CBC/BMP: 11/26/16 0553 11/26/16 0553 Significant Findings Laboratory Tests Test 11/23/16 11/23/16 11/24/16 11/25/16 10:15 18:49 06:17 08:23 Hemoglobin 11.3 GM/DL 10.4 GM/DL 10.0 GM/DL 10.1 GM/DL (11.6-15.3) (11.6-15.3) (11.6-15.3) (11.6-15.3) Hematocrit 34.5 % 32.1 % 30.3 % 31.1 % (35.0-46.0) (35.0-46.0) (35.0-46.0) (35.0-46.0) Red Blood Count 3.50 MIL/MM3 3.55 MIL/MM3 (4.00-5.30) (4.00-5.30) Monocytes (%) (Auto) 8.2 % (0.0-8.0) 8.3 % (0.0-8.0) Potassium Level 3.4 MEQ/L (3.5-5.1) Calcium Level 8.2 MG/DL (8.5-10.1) Total Bilirubin 1.7 MG/DL (0.2-1.0) Aspartate Amino Transf 13 U/L (15-37) (AST/SGOT) Total Protein 6.2 GM/DL (6.4-8.2) Albumin 3.0 GM/DL (3.4-5.0) Random Glucose 130 MG/DL (74-106) Test 11/26/16 05:53 Red Blood Count 3.44 MIL/MM3 (4.00-5.30) Hemoglobin 10.0 GM/DL (11.6-15.3) Hematocrit 29.8 % (35.0-46.0) Estimat Glomerular Filtration 85 ML/MIN (>89) Rate Random Glucose 117 MG/DL (74-106) Calcium Level 8.2 MG/DL (8.5-10.1) PE at Discharge GENERAL: Well-nourished, well-developed middle aged female patient in [facility]. SKIN: Warm and dry. No rash. HEAD: Normocephalic. Atraumatic. EYES: Pupils equal and round. No scleral icterus. No injection or drainage. ENT: Bilateral nasal packing in place, small amount of blood leakage around nares, no blood y drainage observed in posterior pharynx. NECK: Supple. Trachea midline. CARDIOVASCULAR: Regular rate and rhythm. S1, S2 noted. No murmur appreciated. RESPIRATORY: No accessory muscle use. Clear to auscultation. Breath sounds equal bilaterally. GASTROINTESTINAL: Abdomen soft, non-tender, nondistended. Normoactive bowel sounds x4. MUSCULOSKELETAL: No obvious deformities. Extremities without clubbing, cyanosis , or edema. NEUROLOGICAL: Awake and alert. No obvious cranial nerve deficits. Motor grossly within normal limits. Normal speech. PSYCHIATRIC: Appropriate mood and affect; insight and judgment normal. Pt update on day of discharge No events overnight. VSS. Wants to go home. Hospital Course 56-year-old female with a PMH of HTN who was brought to the ER by EMS secondary to acute onset of epistaxis last night. Acute Posterior Epistaxis: awoken from sleep, no inciting event. Multiple attempts to control bleeding in ER, s/p Afrin and Rhino Rockets bilaterally w/ persistent post nasal drip at first, now improved. Dr. Singh consulted by ER physician, recommended BP control and will evaluate in am. Hgb 11.9 on arrival , repeat Hgb 11.2, monitor serial H&H. Admitted to ICU for close monitoring in light of concern for posterior epistaxis w/ arterial bleed and need to optimize BP, Travel Service Consultant consult placed, however patient stable today, will d/c salvage machine operator, place in monitored bed. 11/25 Patient still has Rhino rockets in place. No further epistaxis. appreciate ENT consultation and recommendations. Plan is to remove Rhino rockets once bp more stable. HTN: BP 160's systolic, s/p Hydralazine 30mg IV total in ER, repeat BP 149/79, HR 121. Tachycardia likely due to combination of bleed and Hydralazine. now resolved. Labetalol prn for Systolic >160. Patient started on Nevibolol 2.5 mg po daily and HCTZ 12.5 mg po daily. BP seems to be stable. ----> continue. BP better controlled at discharge continue same meds at [place]. Dehydration: Treated with Iv fluids - now resolved. DVT Prophylaxis: teds/SCDs. Pharmacologic contraindication in light of acute epistaxis. improved. Cleared by ENT for DC. To follow up as OP with PCP and consultants. Pt Condition on Discharge: Fair Discharge Disposition: Discharge Home Discharge Time: <= 30 minutes Discharge Instructions DIET: Follow Instructions for: Heart Healthy Diet Activities you can perform: Regular-No Restrictions Follow up Referrals: Ear Nose Throat - 1 Year PCP Follow-up - 3-5 Days New Medications: Hydrochlorothiazide (Hydrochlorothiazide) 12.5 Mg Cap 12.5 MG PO DAILY Blood Pressure Management #30 CAP Nebivolol (Bystolic) 2.5 Mg Tab 2.5 MG PO DAILY Blood Pressure Management #30 TAB Discontinued Medications: Nebivolol (Bystolic) 5 Mg Tab 5 MG PO DAILY Blood Pressure Management #30 Ref 0 TAB Chitra Hawkins MD Nov 26, 2016 07:44
[2016-11-26 08:09] VITALS: BP 123/55; PULSE 78; RESP 20; TEMP 97.8; O2SAT 96
[2016-11-26] MEDS ORDERED: MUPIROCIN 2% OINT 1 APPLIC/GM SYR NASAL SCH (09:00)
[2016-11-26] MEDS: HYDROCHLOROTHIAZIDE 12.5 MG CAP PO SCH (09:40)
[2016-11-26] MEDS: DOCUSATE SODIUM 100 MG CAP PO SCH (09:40)
[2016-11-26] MEDS: NEBIVOLOL 2.5 MG TAB PO SCH (09:41)
[2016-11-26] MEDS: SODIUM CHLORIDE 0.9% FLUSH 5 ML FLUSH FLUSH SCH (09:41)
--- NOTE | 2016-11-26 19:55 | HHI.DS ---
Discharge Summary Admission Date Nov 23, 2016 at 04:04 Discharge Date: Nov 26, 2016 Admitting Diagnosis posterior epistaxis (1) Acute posterior epistaxis ICD Code: R04.0 Diagnosis: Principal (2) HTN (hypertension) ICD Code: I10 Diagnosis: Secondary (3) Dehydration ICD Code: E86.0 Diagnosis: Secondary Procedures none Brief History - From Admission This is a 56-year-old female with a PMH of HTN who was brought to the ER by EMS secondary to acute onset of epistaxis. Per patient she woke up from sleep and felt her nose running w/ significant post nasal drip. When she wiped herself with a towel noted large amount of blood coming from her nose. No h/o similar symptoms. No recent nose blowing/picking. Not on ASA or anticoagulation. Not on over the counter medications/vitamins. On arrival, BP 144/85, HR 103, O2 sat 100% on RA, Afebrile. CBC unremarkable, Hgb 11.9. Repeat Hgb 11.2. Chemistry essentially unremarkable except for GFR 70. INR 1.0. Multiple attempts to control bleeding in ER, s/p Afrin and Rhino Rockets w/ persistent post nasal drip. Dr. Singh w/ ENT consulted, recommended BP control. S/p Hydralazine 30mg IV in ER w/ repeat BP 149/70, HR 112. Dr. Singh to see in am. CBC/BMP: 11/26/16 0553 11/26/16 0553 Significant Findings Laboratory Tests Test 11/24/16 11/25/16 11/26/16 06:17 08:23 05:53 Red Blood Count 3.50 MIL/MM3 3.55 MIL/MM3 3.44 MIL/MM3 (4.00-5.30) (4.00-5.30) (4.00-5.30) Hemoglobin 10.0 GM/DL 10.1 GM/DL 10.0 GM/DL (11.6-15.3) (11.6-15.3) (11.6-15.3) Hematocrit 30.3 % 31.1 % 29.8 % (35.0-46.0) (35.0-46.0) (35.0-46.0) Monocytes (%) (Auto) 8.2 % (0.0-8.0) 8.3 % (0.0-8.0) Potassium Level 3.4 MEQ/L (3.5-5.1) Calcium Level 8.2 MG/DL 8.2 MG/DL (8.5-10.1) (8.5-10.1) Total Bilirubin 1.7 MG/DL (0.2-1.0) Aspartate Amino Transf 13 U/L (15-37) (AST/SGOT) Total Protein 6.2 GM/DL (6.4-8.2) Albumin 3.0 GM/DL (3.4-5.0) Random Glucose 130 MG/DL 117 MG/DL (74-106) (74-106) Estimat Glomerular Filtration 85 ML/MIN (>89) Rate PE at Discharge GENERAL: Well-nourished, well-developed middle aged female patient in [facility]. SKIN: Warm and dry. No rash. HEAD: Normocephalic. Atraumatic. EYES: Pupils equal and round. No scleral icterus. No injection or drainage. ENT: Bilateral nasal packing in place, small amount of blood leakage around nares, no blood y drainage observed in posterior pharynx. NECK: Supple. Trachea midline. CARDIOVASCULAR: Regular rate and rhythm. S1, S2 noted. No murmur appreciated. RESPIRATORY: No accessory muscle use. Clear to auscultation. Breath sounds equal bilaterally. GASTROINTESTINAL: Abdomen soft, non-tender, nondistended. Normoactive bowel sounds x4. MUSCULOSKELETAL: No obvious deformities. Extremities without clubbing, cyanosis , or edema. NEUROLOGICAL: Awake and alert. No obvious cranial nerve deficits. Motor grossly within normal limits. Normal speech. PSYCHIATRIC: Appropriate mood and affect; insight and judgment normal. Hospital Course 56-year-old female with a PMH of HTN who was brought to the ER by EMS secondary to acute onset of epistaxis last night. Acute Posterior Epistaxis: awoken from sleep, no inciting event. Multiple attempts to control bleeding in ER, s/p Afrin and Rhino Rockets bilaterally w/ persistent post nasal drip at first, now improved. Dr. Singh consulted by ER physician, recommended BP control and will evaluate in am. Hgb 11.9 on arrival , repeat Hgb 11.2, monitor serial H&H. Admitted to ICU for close monitoring in light of concern for posterior epistaxis w/ arterial bleed and need to optimize BP, Spool Carrier consult placed, however patient stable today, will d/c claims associate, place in monitored bed. Had Rhino rockets in place. No further epistaxis. Appreciate ENT consultation and recommendations. Remove Rhino rockets once bp more stable. HTN: BP 160's systolic, s/p Hydralazine 30mg IV total in ER, repeat BP 149/79, HR 121. Tachycardia likely due to combination of bleed and Hydralazine. now resolved. Labetalol prn for Systolic >160. Patient started on Nevibolol 2.5 mg po daily and HCTZ 12.5 mg po daily. BP seems to be stable. ----> continue. Dehydration: Treated with Iv fluids - now resolved. DVT Prophylaxis: teds/SCDs. Pharmacologic contraindication in light of acute epistaxis. Improved. BP better controlled. Patient was DC in fairly good condition to follow up as OP with PCP and consultants. Pt Condition on Discharge: Fair Discharge Disposition: Discharge Home Discharge Instructions DIET: Follow Instructions for: Heart Healthy Diet Activities you can perform: Regular-No Restrictions Follow up Referrals: Ear Nose Throat - 1 Year PCP Follow-up - 3-5 Days New Medications: Hydrochlorothiazide (Hydrochlorothiazide) 12.5 Mg Cap 12.5 MG PO DAILY Blood Pressure Management #30 CAP Nebivolol (Bystolic) 2.5 Mg Tab 2.5 MG PO DAILY Blood Pressure Management #30 TAB Discontinued Medications: Nebivolol (Bystolic) 5 Mg Tab 5 MG PO DAILY Blood Pressure Management #30 Ref 0 TAB Chitra Hawknis MD Nov 26, 2016 19:55
--- NOTE | 2016-12-20 12:30 | MB ---
cc: ASTON SINGH MD PROGRESS NOTE CHIEF COMPLAINT: Nosebleeds. Of note today the patient's blood pressure was much more stable and the patient is anxious to leave. She is tolerating p.o. well. She has had no more nosebleeds today. On examination, her oropharynx shows no blood whatsoever and she has had no bleeding through the nose. The right side of the nasal balloon was deflated and removed and on nasal endoscopy, there is only a small amount of blood that was noted. However, because there was a small amount of blood noted and the patient has a history of the posterior nosebleed, most notably on the left side, I elected to leave the left nasal balloon in place. This will stay in place overnight. If the patient has no further nosebleeds overnight, the patient may be stable to leave tomorrow morning if cleared by the home team with oral antibiotics. The patient will follow up with me on Saturday in my [place] location for removal of the left side nasal packing. Recommend the patient not have any hot fluids at all which may enlarge the blood vessels and increase the chance of bleeding. The patient also should minimize chewing for the next three days and to have more of a soft diet so that she would be less likely to break loose any blood clots. The patient should also be on stool softeners over the next two weeks to minimize any Valsalva so that she will not pop a nosebleed in that way as well. The patient understands the above. I am signing off for now. I discussed the plan with the home team as well. Aston Singh MD [facility] /6:15 PM /12:29 PM
== END 2016-11-26 11:04 | disposition home or self-care (01) | DRG 151 ==
LOC: EDBD → NEPB 00:09 → NEDA 04:04 → OBSVTOIN 04:04 → N04A 16:46 → UNDODISOB 11-26 11:04
PROVIDERS: ADMIT Hospitalist; ATTEND Hospitalist
PROC: 2Y41X5Z Packing of Nasal Region using Packing Material (ICD-10-PCS; principal; 2016-11-23)
PROC: [UNRECOGNIZED PROCEDURE] (2016-11-23)
DX: R04.0 Epistaxis (principal); I10 Essential (primary) hypertension; E86.0 Dehydration; Z98.84 Bariatric surgery status
CPT/HCPCS: 30901; 30905; 80048; 80053; 83735; 85014; 85018; 85025; 85027; 85610; 85730; 86850; 86900; 86901; 96361; 96374; 96375; J0360; J2060; J2270; J7030